=== PATIENT | female | born 1965 | race Caucasian/White ===

== ENCOUNTER 2020-11-19 19:09 | Emergency (ER) | payer OTHER, SELFPAY ==
--- NOTE | ~2020-11-19 | XR_ITS ---
EXAMINATION: XR chest 2V DATE: 11/19/2020 19:40 INDICATION: Fatigue. Body aches. TECHNIQUE: PA and lateral views of the chest were obtained. COMPARISON: Chest radiograph dated 11/18/2014 FINDINGS: The lungs remain clear with no focal airspace opacities, pulmonary edema, pleural effusion or pneumot horax. The cardiomediastinal silhouette is normal. Visualized bones and soft tissues are unremarkable . IMPRESSION: 1. No acute cardiopulmonary disease. Reviewed, dictated and finalized at location A.
--- NOTE | 2020-11-19 19:13 | ED.URI ---
HPI - URI/Sore Throat General Chief Complaint: Upper Respiratory Infection Stated Complaint: Fatigue, Body pain, headache Time Seen by Provider: 11/19/20 19:13 Source: patient and RN notes reviewed History of Present Illness HPI Narrative: Patient is a 55-year-old female who presents the urgent care with complaints of a body aches, fatigue, headache. Patient states her symptoms started yesterday after having known positive Covid exposure. Patient denies of any use of [id number] medication. Patient states that she has had her Covid vaccine. Denies of any known fevers. She does report of nausea but denies of abdominal pain, diarrhea, vomiting. Denies of any shortness of breath or chest pain. Patient appears fatigued however no acute distress noted. Patient aware of the plan of care. Some parts of this dictation were generated by voice recognition software and may contain typographical and/or grammatical inaccuracies. Related Data Home Medications Medication Instructions Recorded Confirmed citalopram 40 mg PO DAILY 03/14/19 03/14/19 Allergies Allergy/AdvReac Type Severity Reaction Status Date / Time No Known Allergies Allergy Verified 11/19/20 19:33 Review of Systems Review of Systems: CONSTITUTIONAL: Denies fever, chills, or sweats. EYES: Denies visual changes, redness, or discharge. ENT: Denies rhinorrhea, congestion, sore throat, or otalgia. CARDIOVASCULAR: Denies chest pain, palpitations, or edema. RESPIRATORY: Denies cough or dyspnea. GASTROINTESTINAL: Denies abdominal pain, nausea, vomiting, or diarrhea. GENITOURINARY: Denies dysuria or hematuria. SKIN: Denies rash or itching. MUSCULOSKELETAL: Denies back pain, joint pain. Reports body aches and fatigue NEUROLOGIC: Reports of headaches All other systems reviewed are negative, except as documented in HPI. PMFSH Comments At the time of my signature, I reviewed and agree with the nursing past medical, surgical, social, and family history. There is no relevant family history pertinent to the patient complaint. Exam Narrative: GENERAL: This is a well-nourished, well-developed patient, appears fatigued HEAD: normocephalic, atraumatic. EYES: PERRL. Sclera clear/white. Vision is grossly intact. EARS: External ears normal, auditory canals clear and without drainage, TMs normal without perforation. Hearing grossly intact. NOSE: External nose normal with no obvious nasal discharge, nares without redness, no rhinorrhea. THROAT: Mucous membranes moist, posterior pharynx clear. Moderate postnasal drainage NECK: Neck supple, non-tender without lymphadenopathy, masses or thyromegaly. CARDIOVASCULAR: Regular rate and rhythm without murmurs, gallops, or rubs. RESPIRATORY: Diminished right upper and lower lobe. Clear throughout SKIN: Slightly flushed. Warm, intact with no suspicious lesions or rash, good texture and turgor. NEURO: awake, alert, and oriented to person, place and time. There were no obvious focal neurologic abnormalities. EXTREMITIES: No clubbing, cyanosis, or edema. Course Vital Signs Vital signs: Vital Signs Temperature 98.0 F 11/19/20 19:15 Pulse Rate 68 11/19/20 19:15 Respiratory Rate 20 11/19/20 19:15 Blood Pressure 156/91 H 11/19/20 19:15 Pulse Oximetry 98 11/19/20 19:15 Temperature 98.0 F 11/19/20 19:15 Pulse Rate 68 11/19/20 19:15 Respiratory Rate 20 11/19/20 19:15 Blood Pressure 156/91 H 11/19/20 19:15 Pulse Oximetry 98 11/19/20 19:15 Reviewed-patient is informed that they may have pre-hypertension or hypertension based on a blood pressure reading in the department. I recommend the patient call the primary care provider listed on their discharge instructions or a physician of their choice this week to arrange follow-up for further evaluation of possible pre-hypertension or hypertension. MDM - URI/Sore Throat MDM Narrative Medical decision making narrative: Reviewed x-ray results with the patient. She
[2020-11-19 19:15] VITALS: BP 156/91; PULSE 68; RESP 20; TEMP 36.7; O2SAT 98
--- NOTE | 2020-11-19 19:17 | ED.URI ---
HPI - URI/Sore Throat General Stated Complaint: Fatigue, Body pain, headache Time Seen by Provider: 11/19/20 19:13 Source: patient and RN notes reviewed Related Data Home Medications Medication Instructions Recorded Confirmed citalopram 40 mg PO DAILY 03/14/19 03/14/19 Allergies Allergy/AdvReac Type Severity Reaction Status Date / Time No Known Allergies Allergy Verified 03/14/19 10:00 Discharge Plan Discharge Prescriptions: No Action citalopram 40 mg Tablet 40 mg PO DAILY RF: 0 cetirizine [Zyrtec] 10 mg tablet 10 mg PO DAILY 60 Days Qty: 60 RF: 0 prednisone 20 mg tablet 60 mg PO DAILY 5 Days Qty: 15 RF: 0 benzonatate [Tessalon Perles] 100 mg capsule 100 mg PO TID Qty: 30 RF: 0 albuterol sulfate [ProAir HFA] 90 mcg/actuation HFA aerosol inhaler 2 puff INHALATION QID Qty: 8.5 RF: 0 fluticasone propionate [Flonase Allergy Relief] 50 mcg/actuation spray,suspension 2 spray NASAL Q12H Qty: 18.2 RF: 0
== END 2020-11-19 20:00 | disposition home or self-care (01) ==
PROVIDERS: Emergency Provider Nurse Practitioner Family; PCP Internal Medicine
DX: B34.9 Viral infection, unspecified (principal); Z20.822 Contact with and (suspected) exposure to COVID-19; F32.9 Major depressive disorder, single episode, unspecified
CPT/HCPCS: 71046; 87426; 87804; 99213; C9803; G0463

== ENCOUNTER 2021-09-22 12:21 | Emergency (ER) | payer OTHER, SELFPAY ==
[2021-09-22 12:28] VITALS: BP 123/78; PULSE 75; RESP 22; TEMP 37.3; O2SAT 94
--- NOTE | 2021-09-22 12:52 | ED.URI ---
HPI - URI/Sore Throat General Chief Complaint: Upper Respiratory Infection Stated Complaint: cough,headache Time Seen by Provider: 09/22/21 12:53 Source: patient, family, RN notes reviewed and old records reviewed Mode of arrival: ambulatory Limitations: no limitations History of Present Illness HPI Narrative: 56 year old female who presents to [facility] care with complaints of sore throat, cough, congestion, sinus pressure with headache, wheezing since yesterday. Patient reports that she has been using throat lozenges today, reports that she slept under fan last night. Patient voices low grade temperature, cough is continuous and harsh with some tachypnea noted, no accessory muscle use noted. Patient reports that she has had Bronchitis in the past. Patient is daily tobacco user for the past 35 years, has had COVID vaccinations. MD elicited complaint: cough, sore throat, rhinorrhea and nasal congestion Pertinent past history: other (Bronchitis, tobacco use) Pain scale (0-10): 6 Treatments prior to arrival: other (throat lozenges) Related Data Home Medications Medication Instructions Recorded Confirmed alprazolam 0.5 mg tablet 1 tablet PO TID 09/22/21 09/22/21 duloxetine 60 mg capsule,delayed 1 cap PO DAILY 09/22/21 09/22/21 release famotidine 20 mg tablet (Pepcid) 20 mg PO DAILY 09/22/21 09/22/21 meloxicam 7.5 mg tablet 1 tablet PO DAILY 09/22/21 09/22/21 Allergies Allergy/AdvReac Type Severity Reaction Status Date / Time No Known Allergies Allergy Verified 09/22/21 12:44 Review of Systems Review of Systems: CONSTITUTIONAL: Reports low grade fever, chills, or sweats. EYES: Denies visual changes, redness, or discharge. ENT: Positive rhinorrhea, congestion, sore throat, no otalgia. CARDIOVASCULAR: Denies chest pain, palpitations, or edema. RESPIRATORY: positive cough some wheezing and dyspnea. GASTROINTESTINAL: No abdominal pain,no nausea, vomiting, or diarrhea. GENITOURINARY: No dysuria or hematuria. SKIN: Denies rash or itching. MUSCULOSKELETAL: Denies back pain, joint pain, or myalgia. NEUROLOGIC:Positive for headache, numbness, or weakness. PSYCHIATRIC: Positive history of anxiety or depression. [facility] Past Medical History Medical History (Updated 09/23/21 @ 15:08 by Sarah Stokes NP) Bronchitis Depression Disorder of right rotator cuff Surgical History Surgical History (Updated 09/23/21 @ 15:09 by Sarah Stokes NP) H/O tubal ligation History of endometrial ablation History of vocal cord polypectomy Previous section Social History Social History (Updated 09/23/21 @ 15:05 by Sarah Stokes NP) Smoking packs per day: 0.75 Smoking cigarettes per day: 15.0 Years smoked: 35 Smoking pack-years: 26.25 Smoking status: Current every day smoker Tobacco type: cigarettes Alcohol intake: current Alcohol use details: social Substance use type: does not use Living arrangements: with family Gender identity (if verbalized by the patient): Female Comments At time of signature agree with nursing documentation of past medical surgical, social, and family history, There is no pertinent family history relevant to presenting complaints. Exam Narrative: GENERAL: Ill-appearing, well-nourished, and in no acute distress. HEAD: Normocephalic, atraumatic. EYES: PERRLA and EOMI. ENT: Nares red with clear rhinorrhea no epistaxis. Mucous membranes moist.TM's normal with good light reflex, throat red with no lesions or exudates or tonsil swelling reported painful swallowing, post nasal drainage present. NECK: Supple. No lymphadenopathy CHEST: Scattered wheezing on auscultation. No acute respiratory distress.Harsh cough noted, with SAO2 94% on room air, some tachypnea noted. HEART: Regular rate and rhythm. No murmur heard. Normal peripheral pulses. ABDOMEN: Soft,nontender , nondistended, normal active bowel sounds. no complaints of nausea EXTREMITIES: Normal range of motion. No edema. SK
== END 2021-09-22 13:10 | disposition home or self-care (01) ==
PROVIDERS: Emergency Provider Registered Nurse; PCP Internal Medicine
DX: J40 Bronchitis, not specified as acute or chronic (principal); J06.9 Acute upper respiratory infection, unspecified; F17.210 Nicotine dependence, cigarettes, uncomplicated
CPT/HCPCS: 99213; G0463

== ENCOUNTER 2023-03-18 14:32 | Emergency (ER) | payer OTHER, SELFPAY ==
[2023-03-18 14:37] VITALS: BP 134/94; PULSE 87; RESP 16; TEMP 36.6; O2SAT 97
--- NOTE | 2023-03-18 14:41 | ED.DENTAL ---
HPI - Dental/Oral General Chief complaint: Dental/Oral Stated complaint: right side face swollen Time Seen by Provider: 03/18/23 14:51 Source: patient Mode of arrival: ambulatory Limitations: no limitations History of Present Illness HPI Narrative: 57-year-old female presents with concern for pain and swelling in her right cheek. She reports she has had pain in that area for about 2 weeks and noticed swelling start today. She denies any nasal congestion, rhinorrhea, fever, aches, chills, sweats. Reports she has a dentist appointment tomorrow MD Complaint: tooth pain Related Data Home Medications Medication Instructions Recorded Confirmed alprazolam 0.5 mg tablet 1 tablet PO TID 09/22/21 09/22/21 duloxetine 60 mg capsule,delayed 1 cap PO DAILY 09/22/21 09/22/21 release Allergies Allergy/AdvReac Type Severity Reaction Status Date / Time No Known Allergies Allergy Verified 09/22/21 12:44 Review of Systems Review of Systems: CONSTITUTIONAL: Denies malaise, chills, sweats, or fever. EYES: Denies visual changes ENT: Denies rhinorrhea, congestion, sinus pain, otalgia or sore throat. Reports right-sided facial pain and swelling CARDIOVASCULAR: Denies chest pain, palpitations RESPIRATORY: Denies cough or dyspnea. SKIN: Denies rash or itching. MUSCULOSKELETAL: Denies myalgia. NEUROLOGIC: Denies numbness, weakness, or headache. All systems reviewed & are unremarkable except as noted in HPI and below PMFSH Past Medical History Medical History (Updated 03/18/23 @ 14:55 by Tonie Gaspar NP) Bronchitis Depression Disorder of right rotator cuff Surgical History Surgical History (Updated 09/23/21 @ 15:09 by Sarah Stokes NP) H/O tubal ligation History of endometrial ablation History of vocal cord polypectomy Previous section Social History Social History (Updated 09/23/21 @ 15:05 by Sarah Stokes NP) Smoking packs per day: 0.75 Smoking cigarettes per day: 15.0 Years smoked: 35 Smoking pack-years: 26.25 Smoking status: Current every day smoker Tobacco type: cigarettes Alcohol intake: current Alcohol use details: social Substance use type: does not use Living arrangements: with family Gender identity (if verbalized by the patient): Female Comments At time of signature, agree with nursing past medical, surgical, social and family history. There is no relevant family history pertinent to the presenting complaint Exam Narrative: GENERAL: Well-appearing, well-nourished, and in no acute distress. HEAD: Normocephalic, atraumatic. EYES: PERRLA, sclera clear ENT: Nares clear, turbinates pink, no rhinorrhea or epistaxis. Mucous membranes moist. TM pearly alicia with sharp light reflex bilaterally; no tragal tenderness. Oropharynx without erythema or lesions. Tonsils not enlarged and without exudate. No missing teeth, broken teeth, caries. Slight edema and tenderness noted at the root of tooth 3. NECK: Supple. No lymphadenopathy. CHEST: No respiratory distress. Speaks in full sentences. HEART: Regular rate and rhythm. SKIN: Warm, dry, no visible rash. NEURO: Alert and oriented x3. PSYCH: Normal mood and affect Course Course Emergency Course: Patient is aware of diagnosis, understands and agrees to treatment plan. Anticipatory guidance given. Patient agrees to follow-up as directed and is aware of reasons to seek care at the emergency department. Portions of this record may have been created with voice recognition software Level of Care: Express Care Visit Vital Signs Vital signs: Reviewed. MDM - Dental/Oral MDM Narrative Medical decision making narrative: Patients pain and complaint coupled with physical findings are consistant with dentalgia. There are no focal signs of space occupying lesions that are compromising to the airway; no dysphagia, odynophagia, dysphonia, or dyspnea. No uvular deviation or soft palate edema. Patient is non-toxic
== END 2023-03-18 15:06 | disposition home or self-care (01) ==
PROVIDERS: Emergency Provider Nurse Practitioner; PCP Internal Medicine
DX: K04.7 Periapical abscess without sinus (principal); F17.210 Nicotine dependence, cigarettes, uncomplicated
CPT/HCPCS: 99213; G0463

== ENCOUNTER 2023-05-22 14:24 | Emergency (ER) | payer OTHER, MEDICAID, SELFPAY ==
--- NOTE | ~2023-05-22 | XR_ITS ---
EXAMINATION: XR chest 2V DATE: 05/22/2023 15:01 INDICATION: Cough and fever. TECHNIQUE: Frontal and lateral views of the chest were obtained on 3 radiographs. COMPARISON: Chest 2 views 11/19/2020 FINDINGS: There is no pneumonia, pleural effusion, or pneumothorax. The heart size is normal. IMPRESSION: 1. No acute cardiopulmonary disease. Reviewed, dictated and finalized at location E. [employer]
[2023-05-22 14:34] VITALS: BP 121/88; PULSE 92; RESP 16; TEMP 36.7; O2SAT 95
--- NOTE | 2023-05-22 14:56 | ED.URI ---
HPI - URI/Sore Throat General Chief Complaint: Upper Respiratory Infection Stated Complaint: Body Ache/Chest Congestion/Headache/Feeling Faint Source: patient Mode of arrival: ambulatory Limitations: no limitations History of Present Illness HPI Narrative: 57-year-old female presenting for complaint of persistent cough for several weeks, which she states is worsening over the past few days. Endorses wheezing/gurgling at night. Has been tested positive for COVID. Patient has been taking leftover amoxicillin and Coricidin. Denies sob, n/v/d/f/c. Daily smoker. Related Data Home Medications Medication Instructions Recorded Confirmed alprazolam 0.5 mg tablet 1 tablet PO TID 09/22/21 05/22/23 meloxicam 7.5 mg tablet mg 05/22/23 Allergies Allergy/AdvReac Type Severity Reaction Status Date / Time No Known Allergies Allergy Verified 09/22/21 12:44 Review of Systems Review of Systems: CONSTITUTIONAL: Denies body aches, fever, chills, or sweats. EYES: Denies visual changes, redness, or discharge. ENT: Denies rhinorrhea, congestion, sore throat, or otalgia. CARDIOVASCULAR: Denies chest pain, palpitations, or edema. RESPIRATORY: Reports cough, sob, wheezing. SKIN: Denies rash, itching, or wounds. MUSCULOSKELETAL: Denies back pain, joint pain, or myalgia. NEUROLOGIC: Denies headache, numbness, tingling, or weakness. All systems reviewed & are unremarkable except as noted in HPI and below PMFSH Past Medical History Medical History Bronchitis Depression Disorder of right rotator cuff Surgical History Surgical History H/O tubal ligation History of endometrial ablation History of vocal cord polypectomy Previous section Social History Social History Smoking packs per day: 0.75 Smoking cigarettes per day: 15.0 Years smoked: 35 Smoking pack-years: 26.25 Smoking status: Current every day smoker Tobacco type: cigarettes Alcohol intake: current Alcohol use details: social Substance use type: does not use Living arrangements: with family Gender identity (if verbalized by the patient): Female Comments At time of signature, I have reviewed and agree with nursing past medical, surgical, social and family history unless otherwise noted. Please see nursing chart for further information. There is no relevant family history pertinent to the presenting complaint Exam Narrative: GENERAL: mildly ill-appearing, nontoxic, in no acute distress. EYES: EOMI. No redness or drainage. Conjunctivae normal. ENT: Mucous membranes pink and moist. No rhinorrhea. TMs normal bilaterally. Throat normal. Uvula midline. NECK: Normal AROM. Supple. CHEST: No respiratory distress. Lungs clear to all rogers. Frequent moist nonproductive cough HEART: Regular rate and rhythm. No murmur appreciated. ABDOMEN: Soft, nontender, nondistended, normal active bowel sounds. EXTREMITIES: Normal range of motion. No edema. SKIN: Warm, dry, no rash. Capillary refill normal. Normal skin turgor. NEURO: Alert and oriented x3. Gait steady. Course Course Emergency Course: Patient is aware of diagnosis, understands and agrees to treatment plan. Anticipatory guidance given. Patient agrees to follow-up as directed and is aware of reasons to seek care at the emergency department. Portions of this record may have been created with voice recognition software Level of Care: Express Care Visit Vital Signs Vital signs: Vital Signs Temperature 98.1 F 05/22/23 14:34 Pulse Rate 92 05/22/23 14:34 Respiratory Rate 16 05/22/23 14:34 Blood Pressure 121/88 05/22/23 14:34 Pulse Oximetry 95 05/22/23 14:34 Oxygen Delivery Room Air 05/22/23 14:34 Temperature 98.1 F 05/22/23 14:34 Pulse Rate 92 05/22/23 14:34 Respiratory Ra
== END 2023-05-22 15:34 | disposition home or self-care (01) ==
PROVIDERS: Emergency Provider Nurse Practitioner Family; PCP Internal Medicine
DX: J40 Bronchitis, not specified as acute or chronic (principal); Z20.822 Contact with and (suspected) exposure to COVID-19; F17.210 Nicotine dependence, cigarettes, uncomplicated
CPT/HCPCS: 71046; 87426; 99213; G0463